=== PATIENT | male | born 1985 | race Caucasian/White ===

== ENCOUNTER 2017-08-24 11:47 | Emergency (ER) | payer OTHER ==
[2017-08-24] MEDS ORDERED: Lorazepam 2 MG/ML VIAL ONE (12:10)
[2017-08-24] MEDS ORDERED: Ondansetron HCl/PF 4 MG/2 ML Vial ONE (12:10)
--- NOTE | 2017-08-24 12:47 | CT ---
CT OF HEAD PERFORMED WITHOUT CONTRAST ENHANCEMENT: History: Passed out and hit head, laceration about eye. FINDINGS: The ventricular and cisternal system is within normal limits. There are no signs of intracerebral hem orrhage or extraaxial fluid collections. Mastoid air cells are clear. There is mucosal disease in the bilateral ethmoid air cells. No airfluid levels are seen. There also appears to be some mucosal ham ge in the maxillary sinuses. Right periorbital swelling is noted. IMPRESSION: No acute intracranial abnormalities. POS: C
[2017-08-24] MEDS ORDERED: Lidocaine 1% (PF) 30 ML VIAL ONE (13:25)
== END 2017-08-24 14:18 | disposition home or self-care (01) ==
LOC: ERS 11:47
DX: S01.111A Laceration without foreign body of right eyelid and periocular area, initial encounter (principal); F41.9 Anxiety disorder, unspecified; F32.9 Major depressive disorder, single episode, unspecified; F17.210 Nicotine dependence, cigarettes, uncomplicated; Z79.899 Other long term (current) drug therapy; W22.8XXA Striking against or struck by other objects, initial encounter
CPT/HCPCS: 12011; 70450; 96374; J2001; J2060; J2405